=== PATIENT | male | born 1965 | race African-American/Black ===

== ENCOUNTER 2020-06-11 09:41 | Inpatient (IN) | payer SELFPAY ==
--- NOTE | 2020-06-11 10:34 | RAD ---
CHEST 1 VIEW: HISTORY: Dyspnea. COMPARISON: Radiograph 09/25/2016. FINDINGS: Abnormal perihilar and peripheral airspace opacities are somewhat faint. No pneumothorax. No effusi on. Heart size is normal. No acute osseous abnormality. IMPRESSION: Commonly reported imaging findings as COVID-19 pneumonia. POS: HOME
[2020-06-11] MEDS ORDERED: Dexamethasone 4 MG TAB ONE (10:54)
[2020-06-11] MEDS ORDERED: Albuterol 200 PUFF (6.7GM INHALER) ONE (11:06)
[2020-06-11 11:52] LABS: #Lymphocytes 1.3 thou/uL (1.20-3.40); #Monocytes 0.5 thou/uL (0.11-0.59); #Neutrophils 4.8 thou/uL (1.40-6.50); %Basophils 0.5 % (0.0-1.0); %Eosinophils 0.3 % (0.0-10.0); %Lymphocytes 19.4 % (21.0-51.0); %Neutrophils 72.9 % (42.0-75.0); Hemoglobin 15.1 g/dL (14.0-18.0); Mean Corpuscular HGB CONC 32.7 g/dL (32.0-36.0); Mean Corpuscular Hemoglobin 30.9 pg (27.0-31.0); Mean Corpuscular Volume 94.3 fL (78.0-98.0); Mean Platelet Volume 10.1 fL (7.4-10.4); Platelet Count 238 thou/uL (130-400); RBC Distribution Width 13.3 % (11.5-14.5); Red Blood Cell (RBC) Count 4.89 mill/uL (4.70-6.10); White Blood Cell (WBC) Count 6.5 thou/uL (4.8-10.8)
[2020-06-11 11:59] LABS: Base Excess-Venous -1.4 mmol/L (-2.0 to 3.0); Bicarbonate (HCO3v) 20.6 mmol/L (22.0-28.0); CO2 Tension (PvCO2) 28.1 mmHg (40.0-50.0); Calcium, Ionized 0.93 mmol/L (1.15-1.33); Chloride 105 mmol/L (98-107); Hemoglobin - Calc 16.9 g/dL (14.0-18.0); Potassium 5.6 mmol/L (3.5-5.1); Sodium 133 mmol/L (138-145); T. Carbon Dioxide 21.5 mmol/L (22.0-28.0)
[2020-06-11 12:19] LABS: ALT (SGPT) 39 U/L (8-55); AST (SGOT) 53 U/L (5-34); Albumin 3.8 g/dL (3.5-5.0); Alkaline Phosphatase 86 U/L (40-110); Anion Gap 17 mmol/L (10-20); BUN (Urea Nitrogen) 13 mg/dL (8.4-25.7); Bilirubin, Total 0.7 mg/dL (0.2-1.2); Calc. Creatinine Clearance 0 mL/min (70-130); Calcium 8.7 mg/dL (7.8-10.44); Carbon Dioxide 20 mmol/L (22-29); Chloride 103 mmol/L (98-107); Globulin 4.3 g/dL (2.4-3.5); Glucose 113 mg/dL (70-105); Potassium 4.6 mmol/L (3.5-5.1); Protein, Total 8.1 g/dL (6.0-8.3); Sodium 135 mmol/L (136-145)
[2020-06-11 12:22] LABS: SARS-CoV-2 NAA Rapid Test DETECTED (NotDetected)
[2020-06-11 12:37] LABS: CKMB 1.9 ng/mL (0-6.6)
[2020-06-11] MEDS ORDERED: Azithromycin 500 MG VIAL ONE (12:45)
[2020-06-11] MEDS ORDERED: Lisinopril 10 MG TAB ONE (12:45)
[2020-06-11] MEDS ORDERED: cefTRIAXone\\ROCEPHIN 1 GM VIAL ONE (12:45)
--- NOTE | 2020-06-11 13:06 | PDOC.FPRHP ---
- History of Present Illness Chief Complaint: SOB History of Present Illness: 55 yo M with HTN, DM2, HLD presents to ER for worsening dyspnea. Tested positive for COVID. He endorses daughter & raizae tested positive for COVID on 06/04. He started experiencing symptoms around 3-4 days ago. Has some loose stools, dec. appetite and coughing with walking. Has felt feverish with chills. Denies chest pain, sputum production, recent travel. He is currently not requiring any supplemental O2 and was going to be discharged from the ER but when walking to the bathroom desaturated to 85% warranting admission. - Allergies/Adverse Reactions Allergies Allergy/AdvReac Type Severity Reaction Status Date / Time No Known Allergies Allergy Verified 09/25/16 16:42 - Home Medications Medication Instructions Recorded Confirmed Type Lisinopril 10 mg PO DAILY #30 tablet 09/27/16 Rx Lovastatin 20 mg PO QPM-WM #30 tablet 09/27/16 Rx NPH, Human Insulin Isophane 20 unit SC HS #1 vial 09/27/16 Rx [HumuLIN N] NPH, Human Insulin Isophane 25 unit SC QAM #1 vial 09/27/16 Rx [HumuLIN N] Pantoprazole [Protonix] 40 mg PO DAILY #30 tab 09/27/16 Rx metFORMIN HCl 500 mg PO BID-WM #60 tab 09/27/16 Rx - History PMHx: HTN, DM2, HLD PSHx: Denies FHx: HTN Social: Former smoker roughly 5 pack year hx, quit 5 years ago - Review of Systems General: reports: fever/chills, weight/appetite/sleep changes. denies: other ENT: denies: nasal congestion, rhinorrhea Respiratory: reports: cough, congestion, shortness of breath, exercise intolerance Cardiovascular: denies: chest pain, palpitation Gastrointestinal: reports: diarrhea. denies: nausea, vomiting, constipation, abdominal pain, GI bleeding Skin: denies: rashes, lesions Musculoskeletal: denies: pain, tenderness, stiffness Neurological: reports: weakness Psychological: denies: anxiety, depression - Vital signs 188/106, MAP: 133, Pulse: 98, Resp: 22, Temp: 99.7 (Oral), Pain: 0, O2 sat: 93 on (2L Oxygen), Time: 06/11/2020 13:58. - Physical Exam Constitutional: NAD, awake, alert and oriented HEENT: normocephalic and atraumatic, PERRLA, EOMI Neck: supple, FROM, trachea midline Heart: RRR, normal S1/S2, no murmurs/rubs/gallops FMR H&P: Results - Labs Result Diagrams: 06/11/20 11:37 06/11/20 11:37 Lab results: WBC 6.5 thou/uL (4.8-10.8) 06/11/20 11:37 Hgb 15.1 g/dL (14.0-18.0) 06/11/20 11:37 Hct 46.1 % (42.0-52.0) 06/11/20 11:37 MCV 94.3 fL (78.0-98.0) 06/11/20 11:37 Plt Count 238 thou/uL (130-400) 06/11/20 11:37 Neutrophils % 72.9 % (42.0-75.0) 06/11/20 11:37 VBG pCO2 28.1 mmHg (40.0-50.0) L 06/11/20 11:51 VBG pO2 42.3 mmHg (35.0-45.0) 06/11/20 11:51 Sodium 135 mmol/L (136-145) L 06/11/20 11:37 Potassium 4.6 mmol/L (3.5-5.1) 06/11/20 11:37 Chloride 103 mmol/L (98-107) 06/11/20 11:37 Carbon Dioxide 20 mmol/L (22-29) L 06/11/20 11:37 BUN 13 mg/dL (8.4-25.7) 06/11/20 11:37 Creatinine 0.90 mg/dL (0.7-1.3) 06/11/20 11:37 Glucose 113 mg/dL (70-105) H 06/11/20 11:37 Calcium 8.7 mg/dL (7.8-10.44) 06/11/20 11:37 Total Bilirubin 0.7 mg/dL (0.2-1.2) 06/11/20 11:37 AST 53 U/L (5-34) H 06/11/20 11:37 ALT 39 U/L (8-55) 06/11/20 11:37 Alkaline Phosphatase 86 U/L (40-110) 06/11/20 11:37 CK-MB (CK-2) 1.9 ng/mL (0-6.6) 06/11/20 11:37 B-Natriuretic Peptide 21.7 pg/mL (0-100) 06/11/20 11:37 Serum Total Protein 8.1 g/dL (6.0-8.3) 06/11/20 11:37 Albumin 3.8 g/dL (3.5-5.0) 06/11/20 11:37 - Radiology Interpretation Chest x-ray Status: image reviewed by me, report reviewed by me Additional comment: Abnormal perihilar and peripheral airspace opacities are somewhat faint FMR H&P: A/P - Plan Disposition/LOS: 55 yo M with AHRF 2/ to COVID respiratory infection Acute hypoxic respiratory insufficiency 2/2 COVID respiratory infection, mild -Sxs 06/07/20, Dx 06/11/20 -Desaturation to mid 80s with walking -CXR: Perihilar and peripheral airspace opacities -Steroids, b/c not requiring O2 at rest, will hold off on convalescent plasma & remdeivir -CM to see if qualifies for home O2- walking test -Given rocephin & azithromycin in the ER, will obtain procal to determine continuation of abx Prediabetes -A1c 5.6, sliding scale -Lifestyle modification HLD -Check FLP, may need statin HTN -Elevated BPs in ER: 180s/100s -Hydralazine PRN -Initiate lisinopril dvt ppx: lovenox gi ppx: none code: full PCP: CC LOS: <[address] Sandhu FMR H&P: Upper Level - Plan Date/Time: 06/11/20 1306 I, [], have evaluated this patient and agree with findings/plan as outlined by international sales manager resident. Pertinent changes/additions are listed here. Addendum - Attending - Attending Attestation Date/Time: 06/11/20 9724 I personally evaluated the patient and discussed the management with Dr. Levine. I agree with the History, Examination, Assessment and Plan documented above with any addition or exceptions noted below.
[2020-06-11] MEDS ORDERED: Ondansetron PF 4 MG/2 ML Vial IVP PRN (13:07)
[2020-06-11] MEDS ORDERED: Acetaminophen 325 MG TAB PO PRN (13:07)
[2020-06-11] MEDS ORDERED: Dextrose 5% in Water 1,000 ML IV PRN (13:07)
[2020-06-11] MEDS ORDERED: Dextrose 50% Abboject 50 ML SYRINGE SLOW IVP PRN (13:07)
[2020-06-11] MEDS ORDERED: Ondansetron ODT 4 MG TAB PO PRN (13:07)
[2020-06-11] MEDS ORDERED: HumaLOG 300 UNITS/3 ML VIAL SC PRN (13:07)
[2020-06-11 14:09] LABS: Hemoglobin A1c 6.2 % (4.0-6.0)
[2020-06-11 16:26] VITALS: BMI 41.3
[2020-06-11] MEDS: hydrALAZINE 20 MG/ML VIAL SLOW IVP PRN (17:45)
[2020-06-11] MEDS: HumaLOG 300 UNITS/3 ML VIAL SC PRN (17:46)
[2020-06-11 18:16] LABS: CKMB 2.5 ng/mL (0-6.6)
[2020-06-11] MEDS ORDERED: FLU VACC QS2020-21(6MOS UP)/PF 60 MCG/0.5 ML SYRINGE IM ONE (21:00)
[2020-06-11] MEDS: Melatonin 3 MG TAB PO PRN (22:13)
[2020-06-12] MEDS: hydrALAZINE 20 MG/ML VIAL SLOW IVP PRN ×3 (00:58→18:05)
[2020-06-12 05:28] LABS: Band 3 % (5-11); Hemoglobin 14.5 g/dL (14.0-18.0); Lymphocytes 8 % (21-51); MDiff Complete? YES; Mean Corpuscular HGB CONC 32.8 g/dL (32.0-36.0); Mean Corpuscular Hemoglobin 30.4 pg (27.0-31.0); Mean Corpuscular Volume 92.5 fL (78.0-98.0); Monocytes 12 % (0-10); Neutrophil 77 % (42-75); Platelet Count 293 thou/uL (130-400); Platelet Morphology Comment Appears Adequate; RBC Distribution Width 12.9 % (11.5-14.5); RBC Morphology Normal; Red Blood Cell (RBC) Count 4.77 mill/uL (4.70-6.10); White Blood Cell (WBC) Count 12.1 thou/uL (4.8-10.8)
[2020-06-12 05:37] LABS: Anion Gap 16 mmol/L (10-20); BUN (Urea Nitrogen) 14 mg/dL (8.4-25.7); Calc. Creatinine Clearance 179 mL/min (70-130); Calcium 9.1 mg/dL (7.8-10.44); Carbon Dioxide 20 mmol/L (22-29); Cardiac Risk 3.1 (Less than 4.5); Chloride 103 mmol/L (98-107); Cholesterol 126 mg/dl (< 200 Desired); Glucose 149 mg/dL (70-105); HDL Cholesterol 41 mg/dL (>60 Neg Risk); LDL Cholesterol, Calculated 75 mg/dL; Potassium 4.1 mmol/L (3.5-5.1); Sodium 135 mmol/L (136-145); Triglycerides 50 mg/dL (Less than 150)
--- NOTE | 2020-06-12 06:01 | PDOC.FM ---
- Subjective Subjective: Reports productive cough and mild SOB with ambulation. Denies headache, vision changes, chest pain, SOB at rest and palpitations. - Objective MAR Reviewed: Yes Vital Signs & Weight: Vital Signs (12 hours) Temp Pulse Resp BP Pulse Ox 06/12/20 04:40 98.3 F 110 H 18 190/88 H 100 06/12/20 04:00 97.7 F 97 20 190/88 H 98 06/12/20 00:58 97 06/12/20 00:45 99 06/12/20 00:36 98.0 F 97 17 182/80 H 06/11/20 23:27 96 06/11/20 21:06 98.0 F 95 20 153/73 H 90 L 06/11/20 19:12 99 Weight Weight 112.854 kg I&O: 06/10/20 06/11/20 06/12/20 06:59 06:59 06:59 Intake Total 600 Balance 600 Result Diagrams: 06/12/20 04:53 06/12/20 04:53 Phys Exam - Physical Examination Constitutional: NAD HEENT: moist MMs, sclera anicteric Neck: full ROM Respiratory: clear to auscultation bilateral On 3L NC Cardiovascular: RRR, no significant murmur Gastrointestinal: soft, non-tender, positive bowel sounds Musculoskeletal: no edema Neurological: non-focal Psychiatric: normal affect, A&O x 3 Skin: no rash Dx/Plan - Plan Plan: 55 yo M with AHRF 2/2 to COVID respiratory infection Acute hypoxic respiratory insufficiency 2/2 COVID respiratory infection, mild Sxs 06/07/20, Dx 06/11/20. Desaturation to mid 80s with walking in ED. CXR: Perihilar and peripheral airspace opacities -Decadron (06/11) -Due to now requiring O2 at rest, will start remdesivir and convalescent plasma -Currently on 3L at rest. Wean as tolerated -CM for home o2 -Procal 0.33. Will continue rocephin (06/11) and azithromycin (06/11) Prediabetes -A1c 5.6, sliding scale -Lifestyle modification HLD -ASCVD risk 13.7%, therefore will start atorvastatin 40mg daily HTN -Elevated BPs in ER over 180s/90-100s and overnight requiring hydralazine 10mg x 2 -Hydralazine PRN -Initiate lisinopril 10mg daily dvt ppx: lovenox gi ppx: none code: full PCP: CC Dispo: Home pending further medical management and coordination of home O2 Addendum - Attending - Attending Attestation Date/Time: 06/12/20 1051 I personally evaluated the patient and discussed the management with Dr. Khanna. I agree with the History, Examination, Assessment and Plan documented above with any addition or exceptions noted below. Patient here with hypoxic resp failure 2/2 COVID. Continue O2 supplementation, steroids usual therapies. Wean O2 as tolerated. He also needs BP control and we will start him on meds for that and titrate accordingly.
[2020-06-12] MEDS: Dexamethasone 4 MG TAB PO SCH (08:47)
[2020-06-12] MEDS: Enoxaparin Sodium 40 MG/0.4 ML SYRINGE SC SCH (08:49)
[2020-06-12] MEDS ORDERED: Lisinopril 5 MG TAB PO SCH ×3 (09:00→20:45)
[2020-06-12] MEDS: guaiFENesin ER 600 MG TAB PO SCH ×2 (09:03→20:06)
[2020-06-12] MEDS: cefTRIAXone\\ROCEPHIN 1 GM in Sodium Chloride 0.9% 100 ML IVPB SCH (11:36)
[2020-06-12] MEDS ORDERED: REMDESIVIR (EUA) 200 MG in Sodium Chloride 0.9% 250 ML 210 ML IV SCH (13:15)
[2020-06-12] MEDS: HumaLOG 300 UNITS/3 ML VIAL SC PRN (13:24)
[2020-06-12] MEDS: Azithromycin 250 MG TAB PO SCH (13:24)
[2020-06-12] MEDS: Atorvastatin Calcium 40 MG TAB PO SCH (20:06)
[2020-06-12] MEDS: Famotidine 20 MG TAB PO SCH (20:06)
[2020-06-12] MEDS: Labetalol HCl 100 MG/20 ML VIAL SLOW IVP PRN (20:52)
[2020-06-13] MEDS: hydrALAZINE 20 MG/ML VIAL SLOW IVP PRN ×2 (01:11→10:04)
[2020-06-13] MEDS: Melatonin 3 MG TAB PO PRN ×2 (02:04→22:29)
[2020-06-13] MEDS ORDERED: Labetalol HCl 100 MG/20 ML VIAL SLOW IVP SCH (05:15)
[2020-06-13 06:08] LABS: Anion Gap 16 mmol/L (10-20); BUN (Urea Nitrogen) 17 mg/dL (8.4-25.7); Calc. Creatinine Clearance 177 mL/min (70-130); Carbon Dioxide 23 mmol/L (22-29); Chloride 103 mmol/L (98-107); Glucose 113 mg/dL (70-105); Potassium 3.9 mmol/L (3.5-5.1); Sodium 138 mmol/L (136-145)
[2020-06-13 06:09] LABS: Hemoglobin 13.9 g/dL (14.0-18.0); Mean Corpuscular HGB CONC 31.8 g/dL (32.0-36.0); Mean Corpuscular Hemoglobin 29.6 pg (27.0-31.0); Mean Corpuscular Volume 93.2 fL (78.0-98.0); Platelet Count 343 thou/uL (130-400); RBC Distribution Width 13.1 % (11.5-14.5); White Blood Cell (WBC) Count 13.6 thou/uL (4.8-10.8)
--- NOTE | 2020-06-13 06:16 | PDOC.FM ---
- Subjective Subjective: Reports improvement of SOB. Denies headache, vision changes, chest pain, and palpitations. Says his BP was elevated overnight due to frustration over lack of sleep and "getting worked up" over being here. - Objective MAR Reviewed: Yes Vital Signs & Weight: Vital Signs (12 hours) Temp Pulse Resp BP Pulse Ox 06/13/20 04:05 97.2 F L 98 16 190/94 H 98 06/13/20 01:11 95 06/13/20 00:37 98.5 F 95 16 175/80 H 92 L 06/12/20 20:52 104 H 06/12/20 20:28 98.4 F 104 H 20 189/87 H 98 Weight Weight 112.854 kg I&O: 06/11/20 06/12/20 06/13/20 06:59 06:59 06:59 Intake Total 600 2120 Output Total 1140 Balance 600 980 Result Diagrams: 06/13/20 05:29 06/13/20 05:29 Phys Exam - Physical Examination Constitutional: NAD HEENT: moist MMs, sclera anicteric Neck: full ROM Respiratory: clear to auscultation bilateral On 3L Cardiovascular: RRR, no significant murmur Gastrointestinal: soft, non-tender, positive bowel sounds Musculoskeletal: no edema Neurological: moves all 4 limbs Psychiatric: normal affect, A&O x 3 Skin: no rash Dx/Plan - Plan Plan: 55 yo M with AHRF 2/2 to COVID respiratory infection Acute hypoxic respiratory insufficiency 2/2 COVID respiratory infection, mild Sxs 06/07/20, Dx 06/11/20. Desaturation to mid 80s with walking in ED. CXR: Perihilar and peripheral airspace opacities -Decadron (06/11), remdesivir (06/12), convalescent plasma (06/12) -Currently on 3L at rest. Wean as tolerated -CM for home o2 -Procal 0.33. Continue rocephin (06/11) and azithromycin (06/11) from ED Prediabetes -A1c 5.6, sliding scale -Lifestyle modification HLD -ASCVD risk 13.7%, therefore started atorvastatin 40mg daily HTN -Elevated BPs 170-190s systolic overnight requiring lisinopril 10, labetalol 5mg and 10mg -Hydralazine PRN, labetalol PRN -Increase lisinopril 10mg to 20mg daily dvt ppx: lovenox gi ppx: none code: full PCP: CC Dispo: Home pending further medical management and coordination of home O2 Addendum - Attending - Attending Attestation Date/Time: 06/13/20 3879 I personally evaluated the patient and discussed the management with Dr. Clemente arias. I agree with the History, Examination, Assessment and Plan documented above with any addition or exceptions noted below.
[2020-06-13 06:37] LABS: #Lymphocytes 1.3 thou/uL (1.20-3.40); #Neutrophils 11.3 thou/uL (1.40-6.50); %Basophils 0.1 % (0.0-1.0); %Eosinophils 0.1 % (0.0-10.0); %Lymphocytes 9.2 % (21.0-51.0); %Monocytes 7.5 % (0.0-10.0); %Neutrophils 83.1 % (42.0-75.0); Band 1 % (5-11); Hypochromia SLIGHT = 6-15 cells (100X) (0-5/hpf); Lymphocytes 18 % (21-51); MDiff Complete? YES; Neutrophil 80 % (42-75); Platelet Morphology Comment Appears Adequate; Reactive Lymphocytes 1 % (0-10)
[2020-06-13] MEDS ORDERED: Lisinopril 10 MG TAB PO SCH (09:00)
[2020-06-13] MEDS: Famotidine 20 MG TAB PO SCH ×2 (09:33→20:01)
[2020-06-13] MEDS: guaiFENesin ER 600 MG TAB PO SCH ×2 (09:33→20:06)
[2020-06-13] MEDS: Dexamethasone 4 MG TAB PO SCH (09:33)
[2020-06-13] MEDS: Enoxaparin Sodium 40 MG/0.4 ML SYRINGE SC SCH (09:33)
[2020-06-13] MEDS: Lisinopril 20 MG TAB PO SCH (09:34)
[2020-06-13] MEDS: cefTRIAXone\\ROCEPHIN 1 GM in Sodium Chloride 0.9% 100 ML IVPB SCH (12:01)
[2020-06-13] MEDS: Labetalol HCl 100 MG/20 ML VIAL SLOW IVP PRN ×3 (12:25→22:30)
[2020-06-13] MEDS ORDERED: Amlodipine 10 MG TAB PO SCH (12:25)
[2020-06-13] MEDS: REMDESIVIR (EUA) 100 MG in Sodium Chloride 0.9% 250 ML 230 ML IV SCH (13:16)
[2020-06-13] MEDS: Azithromycin 250 MG TAB PO SCH (13:17)
[2020-06-13] MEDS: HumaLOG 300 UNITS/3 ML VIAL SC PRN (17:18)
[2020-06-13] MEDS: Atorvastatin Calcium 40 MG TAB PO SCH (20:02)
[2020-06-14] MEDS: Labetalol HCl 100 MG/20 ML VIAL SLOW IVP PRN ×2 (04:27→08:10)
[2020-06-14 05:53] LABS: #Lymphocytes 1.4 thou/uL (1.20-3.40); #Monocytes 1.3 thou/uL (0.11-0.59); #Neutrophils 8.6 thou/uL (1.40-6.50); %Eosinophils 0.1 % (0.0-10.0); %Lymphocytes 12.1 % (21.0-51.0); %Monocytes 11.1 % (0.0-10.0); %Neutrophils 76.6 % (42.0-75.0); Hemoglobin 14.8 g/dL (14.0-18.0); Mean Corpuscular HGB CONC 32.2 g/dL (32.0-36.0); Mean Corpuscular Hemoglobin 30.6 pg (27.0-31.0); Mean Corpuscular Volume 95.1 fL (78.0-98.0); Mean Platelet Volume 10.3 fL (7.4-10.4); Platelet Count 374 thou/uL (130-400); RBC Distribution Width 13.2 % (11.5-14.5); Red Blood Cell (RBC) Count 4.83 mill/uL (4.70-6.10); White Blood Cell (WBC) Count 11.2 thou/uL (4.8-10.8)
--- NOTE | 2020-06-14 06:09 | PDOC.FM ---
- Subjective Subjective: 4 seconds of vtach overnight, asymptomatic. Denies headache, vision changes, chest pain, and palpitations. Reports mild SOB when walking but says he is overall "great." States he becomes stressed out when people come into the room and check his BP. Also reports stress today due to family member's that he is missing. - Objective MAR Reviewed: Yes Vital Signs & Weight: Vital Signs (12 hours) Temp Pulse Resp BP BP Pulse Ox 06/14/20 04:27 89 186/88 H 06/14/20 03:51 98.6 F 89 18 186/88 H 96 06/13/20 23:50 171/85 H 06/13/20 23:00 92 22 H 145/109 H 97 06/13/20 22:30 92 181/101 H 06/13/20 20:00 97.1 F L 94 21 H 183/85 H 99 Weight Weight 112.854 kg I&O: 06/12/20 06/13/20 06/14/20 06:59 06:59 06:59 Intake Total 600 2120 1684 Output Total 1140 2875 Balance 600 980 -1191 Result Diagrams: 06/14/20 05:20 06/14/20 05:20 Phys Exam - Physical Examination Constitutional: NAD HEENT: moist MMs, sclera anicteric Neck: full ROM Respiratory: clear to auscultation bilateral Sat'ing 90 on 3L NC Cardiovascular: RRR, no significant murmur Gastrointestinal: soft, non-tender, positive bowel sounds Musculoskeletal: no edema Neurological: moves all 4 limbs Psychiatric: normal affect, A&O x 3 Skin: no rash Dx/Plan - Plan Plan: 55 yo M with AHRF 2/2 to COVID respiratory infection Acute hypoxic respiratory insufficiency 2/2 COVID respiratory infection, mild Sxs 06/07/20, Dx 06/11/20. Desaturation to mid 80s with walking in ED. CXR: Perihilar and peripheral airspace opacities -Decadron (06/11), remdesivir (06/12), s/p convalescent plasma (06/12) -Currently on 3L NC at rest. Wean as tolerated -CM for home o2 -Procal 0.33 > 0.27 > 0.15. Continue rocephin (06/11) and azithromycin (06/11) Prediabetes -A1c 5.6, mild SSI -Lifestyle modification HLD -ASCVD risk 13.7%, therefore started atorvastatin 40mg daily HTN -Elevated BPs 170-180s systolic overnight requiring labetalol 10mg x 2 -BP 220/110 during rounds, instructed nursing staff to give hydralazine 10mg now in addition to am BP meds -Hydralazine PRN, labetalol PRN -Continue lisinopril 20mg daily -Continue amlodipine 10mg daily -Add chlorthalidone 12.5mg daily dvt ppx: lovenox gi ppx: none code: full PCP: CC Dispo: Home pending further medical management. Has been approved for home O2 Addendum - Attending - Attending Attestation Date/Time: 06/14/20 0543 I personally evaluated the patient and discussed the management with Dr. Khanna. I agree with the History, Examination, Assessment and Plan documented above with any addition or exceptions noted below.
[2020-06-14 06:18] LABS: Anion Gap 16 mmol/L (10-20); BUN (Urea Nitrogen) 18 mg/dL (8.4-25.7); Calc. Creatinine Clearance 148 mL/min (70-130); Calcium 9.2 mg/dL (7.8-10.44); Carbon Dioxide 24 mmol/L (22-29); Chloride 104 mmol/L (98-107); Glucose 117 mg/dL (70-105); Potassium 4.4 mmol/L (3.5-5.1); Sodium 140 mmol/L (136-145)
[2020-06-14] MEDS: Amlodipine 10 MG TAB PO SCH (08:09)
[2020-06-14] MEDS: Enoxaparin Sodium 40 MG/0.4 ML SYRINGE SC SCH (08:09)
[2020-06-14] MEDS: Dexamethasone 4 MG TAB PO SCH (08:09)
[2020-06-14] MEDS: guaiFENesin ER 600 MG TAB PO SCH ×2 (08:10→20:56)
[2020-06-14] MEDS: Famotidine 20 MG TAB PO SCH ×2 (08:10→20:56)
[2020-06-14] MEDS: Lisinopril 20 MG TAB PO SCH (08:10)
[2020-06-14] MEDS ORDERED: Amlodipine 5 MG TAB PO SCH (09:00)
[2020-06-14] MEDS: HumaLOG 300 UNITS/3 ML VIAL SC PRN ×2 (11:12→17:50)
[2020-06-14] MEDS: hydrALAZINE 20 MG/ML VIAL SLOW IVP PRN (12:43)
[2020-06-14] MEDS: REMDESIVIR (EUA) 100 MG in Sodium Chloride 0.9% 250 ML 230 ML IV SCH (13:12)
[2020-06-14] MEDS: hydrOXYzine 25 MG TAB PO PRN ×2 (14:15→20:57)
[2020-06-14] MEDS: Carvedilol 6.25 MG TAB PO SCH (16:57)
[2020-06-14] MEDS: Atorvastatin Calcium 40 MG TAB PO SCH (20:55)
[2020-06-14] MEDS: Melatonin 3 MG TAB PO PRN (20:56)
[2020-06-15] MEDS: hydrALAZINE 20 MG/ML VIAL SLOW IVP PRN ×2 (04:26→22:22)
[2020-06-15 05:34] LABS: Anion Gap 18 mmol/L (10-20); BUN (Urea Nitrogen) 19 mg/dL (8.4-25.7); Calc. Creatinine Clearance 165 mL/min (70-130); Calcium 9.1 mg/dL (7.8-10.44); Carbon Dioxide 19 mmol/L (22-29); Chloride 104 mmol/L (98-107); Glucose 112 mg/dL (70-105); Potassium 3.9 mmol/L (3.5-5.1); Sodium 137 mmol/L (136-145)
[2020-06-15 05:37] LABS: ALT (SGPT) 39 U/L (8-55); AST (SGOT) 24 U/L (5-34); Albumin 3.7 g/dL (3.5-5.0); Alkaline Phosphatase 86 U/L (40-110); Bilirubin, Direct 0.3 mg/dL (0.1-0.3); Bilirubin, Total 0.6 mg/dL (0.2-1.2); Protein, Total 7.5 g/dL (6.0-8.3)
--- NOTE | 2020-06-15 06:11 | PDOC.FM ---
- Subjective Subjective: Was weaned to 2L overnight, sat's dropped to 86% with ambulation and was titrated up to 5L O2. Says he feels well now on 3L with mild SOB. Denies headache, vision changes, chest pain, and palpitations. Reports hydroxyzine is greatly helpful with feelings of anxiety overnight - Objective MAR Reviewed: Yes Vital Signs & Weight: Vital Signs (12 hours) Temp Pulse Resp BP Pulse Ox 06/15/20 04:26 89 06/15/20 03:53 98.2 F 89 21 H 192/88 H 99 06/15/20 00:00 62 20 06/14/20 20:00 96.9 F L 82 20 145/90 H 100 Weight Weight 111.72 kg I&O: 06/13/20 06/14/20 06/15/20 06:59 06:59 06:59 Intake Total 2120 1684 1080 Output Total 1140 2875 1025 Balance 980 -1191 55 Result Diagrams: 06/14/20 05:20 06/15/20 04:45 Phys Exam - Physical Examination Constitutional: NAD HEENT: moist MMs, sclera anicteric Neck: full ROM Respiratory: no wheezing, clear to auscultation bilateral On 3L Cardiovascular: RRR, no significant murmur Gastrointestinal: soft, non-tender, positive bowel sounds Musculoskeletal: no edema Neurological: moves all 4 limbs Psychiatric: normal affect, A&O x 3 Skin: no rash Dx/Plan - Plan Plan: 55 yo M with AHRF 2/2 to COVID respiratory infection Acute hypoxic respiratory insufficiency 2/2 COVID respiratory infection, mild Sxs 06/07/20, Dx 06/11/20. Desaturation to mid 80s with walking in ED. CXR: Perihilar and peripheral airspace opacities -Decadron (06/11), remdesivir (06/12), s/p convalescent plasma (06/12) -Currently on 3L NC at rest. Wean as tolerated -CM for home o2 - approved -Procal 0.33 > 0.27 > 0.15. Discontinued rocephin (06/11-) and azithromycin (06/11-) Prediabetes -A1c 5.6, mild SSI -Lifestyle modification HLD -ASCVD risk 13.7%, therefore started atorvastatin 40mg daily HTN -Elevated BPs overnight requiring hydralazine 10mg x 1 -Hydralazine PRN, labetalol PRN -Continue lisinopril 20mg daily -Continue amlodipine 10mg daily -Continue chlorthalidone 12.5mg daily Anxiety -Hydroxyzine 50mg Q6H PRN dvt ppx: lovenox gi ppx: none code: full PCP: CC Dispo: Home pending adequate BP control. Has been approved for home O2 Addendum - Attending - Attending Attestation Date/Time: 06/15/20 4785 I personally evaluated the patient and discussed the management with Dr. Khanna. I agree with the History, Examination, Assessment and Plan documented above with any addition or exceptions noted below. Patient overall stable. Continue to wean O2 as tolerated. Continue treatment for COVID. Escalate BP control. Home O2 set up for whenever he is ready for dc.
[2020-06-15] MEDS ORDERED: Chlorthalidone 25 MG TAB PO SCH (09:00)
[2020-06-15] MEDS: guaiFENesin ER 600 MG TAB PO SCH ×2 (09:53→21:49)
[2020-06-15] MEDS: Carvedilol 6.25 MG TAB PO SCH ×2 (09:53→16:36)
[2020-06-15] MEDS: Enoxaparin Sodium 40 MG/0.4 ML SYRINGE SC SCH (09:53)
[2020-06-15] MEDS: Lisinopril 20 MG TAB PO SCH (09:53)
[2020-06-15] MEDS: Amlodipine 10 MG TAB PO SCH (09:53)
[2020-06-15] MEDS: Famotidine 20 MG TAB PO SCH ×2 (09:53→21:49)
[2020-06-15] MEDS: Dexamethasone 4 MG TAB PO SCH (09:55)
[2020-06-15] MEDS: REMDESIVIR (EUA) 100 MG in Sodium Chloride 0.9% 250 ML 230 ML IV SCH (16:37)
[2020-06-15] MEDS: HumaLOG 300 UNITS/3 ML VIAL SC PRN (16:40)
[2020-06-15] MEDS: Atorvastatin Calcium 40 MG TAB PO SCH (21:49)
[2020-06-15] MEDS: Melatonin 3 MG TAB PO PRN (21:49)
[2020-06-16] MEDS: hydrOXYzine 25 MG TAB PO PRN (01:37)
[2020-06-16] MEDS: Labetalol HCl 100 MG/20 ML VIAL SLOW IVP PRN (01:38)
--- NOTE | 2020-06-16 05:40 | PDOC.FM ---
- Subjective Subjective: Overnight received hydralazine PRN for elevated BP. Remains asymptomatic - no chest pain, no headache. Comfortable on 2.5L NC, weaned from 3L NC overnight. Feels ready to go home. Home O2 has already been delivered to his house. - Objective Vital Signs & Weight: Vital Signs (12 hours) Temp Pulse Resp BP BP Pulse Ox 06/16/20 01:38 87 205/100 H 06/15/20 22:22 76 183/90 H 06/15/20 20:20 98.5 F 76 20 183/90 H 100 06/15/20 20:15 100 Weight Weight 111.72 kg I&O: 06/14/20 06/15/20 06/16/20 06:59 06:59 06:59 Intake Total 1684 1080 978 Output Total 1535 1025 950 Balance -1191 55 28 Result Diagrams: 06/14/20 05:20 06/16/20 05:31 Phys Exam - Physical Examination Constitutional: NAD HEENT: moist MMs Neck: supple Respiratory: no wheezing, no rales decreased breath sounds bilaterally, resting comfortably on 2.5L NC Cardiovascular: RRR, no significant murmur Gastrointestinal: soft, non-tender Musculoskeletal: pulses present Neurological: non-focal, moves all 4 limbs Psychiatric: normal affect, A&O x 3 Skin: normal turgor, cap refill <2 seconds Dx/Plan - Plan Plan: 55 yo M with AHRF 2/2 to COVID respiratory infection Acute hypoxic respiratory insufficiency 2/2 COVID respiratory infection, mild Sxs 06/07/20, Dx 06/11/20. Desaturation to mid 80s with walking in ED. CXR: Perihilar and peripheral airspace opacities -Decadron (06/11), remdesivir (06/12), s/p convalescent plasma (06/12) -Currently on 2.5L NC at rest. Wean as tolerated -CM for home o2 - approved and has been delivered -Procal 0.33 > 0.27 > 0.15. Discontinued rocephin (06/11-) and azithromycin () Prediabetes -A1c 5.6, mild SSI -Lifestyle modification - f/u outpatient HLD -ASCVD risk 13.7%, therefore started atorvastatin 40mg daily HTN Elevated overnight, some pressures have been checked using manual cuff which only has regular size available at this time. Some artificial elevations as he requires a large cuff, although he remains above goal regardless. - will increase lisinopril to 40 mg daily - continue amlodpine 10 mg, coreg 6.25 mg BID - Hydralazine PRN, labetalol PRN - if BP remains stable throughout the day without use of PRNs, may possibly DC to home tonight Anxiety -Hydroxyzine 50mg Q6H PRN dvt ppx: lovenox gi ppx: none code: full PCP: CC Dispo: Home pending adequate BP control. Has been approved for home O2 Addendum - Attending - Attending Attestation Date/Time: 06/16/20 8731 I personally evaluated the patient and discussed the management with Dr. Weems. I agree with the History, Examination, Assessment and Plan documented above with any addition or exceptions noted below. The patient was sitting up in bed and breathing comfortably. He is ready to d/c home.
[2020-06-16 06:11] LABS: ALT (SGPT) 34 U/L (8-55); AST (SGOT) 22 U/L (5-34); Albumin 3.6 g/dL (3.5-5.0); Alkaline Phosphatase 81 U/L (40-110); Anion Gap 16 mmol/L (10-20); BUN (Urea Nitrogen) 20 mg/dL (8.4-25.7); Bilirubin, Direct 0.3 mg/dL (0.1-0.3); Bilirubin, Total 0.6 mg/dL (0.2-1.2); Calc. Creatinine Clearance 178 mL/min (70-130); Carbon Dioxide 19 mmol/L (22-29); Chloride 105 mmol/L (98-107); Glucose 101 mg/dL (70-105); Protein, Total 7.3 g/dL (6.0-8.3); Sodium 136 mmol/L (136-145)
[2020-06-16] MEDS: Enoxaparin Sodium 40 MG/0.4 ML SYRINGE SC SCH (08:01)
[2020-06-16] MEDS: Dexamethasone 4 MG TAB PO SCH (08:01)
[2020-06-16] MEDS: Famotidine 20 MG TAB PO SCH (08:02)
[2020-06-16] MEDS: Amlodipine 10 MG TAB PO SCH (08:03)
[2020-06-16] MEDS: Lisinopril 20 MG TAB PO SCH (08:03)
[2020-06-16] MEDS: guaiFENesin ER 600 MG TAB PO SCH (08:03)
[2020-06-16] MEDS: Carvedilol 6.25 MG TAB PO SCH ×2 (08:03→16:28)
[2020-06-16] MEDS ORDERED: Lisinopril 20 MG TAB PO SCH ×2 (09:00)
[2020-06-16] MEDS: HumaLOG 300 UNITS/3 ML VIAL SC PRN (12:36)
--- NOTE | 2020-06-16 13:38 | EKG ---
Test Reason : Blood Pressure : / mmHG Vent. Rate : 098 BPM Atrial Rate : 098 BPM P-R Int : 130 ms QRS Dur : 096 ms QT Int : 398 ms P-R-T Axes : 070 -27 050 degrees QTc Int : 508 ms Normal sinus rhythm Possible Left atrial enlargement Incomplete right bundle branch block Left ventricular hypertrophy Cannot rule out Septal infarct , age undetermined T wave abnormality, consider lateral ischemia Prolonged QT Abnormal ECG Confirmed by YAIR PAUL, MARTITA ([id number]), primer expeditor and drier GINNA STREETER ([id number]) on 06/16/2020 1:37:23 PM Referred By: Confirmed By:MARTITA MAZARIEGOS MD
[2020-06-16] MEDS: REMDESIVIR (EUA) 100 MG in Sodium Chloride 0.9% 250 ML 230 ML IV SCH (15:05)
[2020-06-16 16:22] VITALS: TEMP 98.9
[2020-06-16 17:45] VITALS: BP 158/79
--- NOTE | 2020-06-19 01:13 | PQF ---
Dear : Janny Sky Date 06/19/2020 Please exercise your independent, professional judgment in responding to the clarification form. Clinical indicators are provided on the bottom of this form for your review Can you please further clarify the diagnosis of the patient? Please check appropriate box(es): [ x ] Acute Respiratory Failure with Hypoxia [ ] Acute On Chronic Respiratory Failure with Hypoxia [ x] Acute Respiratory Failure due to: COVID Pneumonia [ ] Respiratory Insufficiency [ ] Other diagnosis please specify [ ] Unable to determine Physician Signature: Date/Time: For continuity of documentation, please document condition throughout progress notes and discharge summary. Thank You. To be completed by CDI/Coding staff for physician review: Present Clinical Indicators - Signs / Symptoms / Labs Results and Location in Medical Record [ x ] SOB H and P pg.1 [ x ] Tested positive for COVID H and P pg.1 [ x ] Desaturated to 85% H and P pg.1 [ x ] Acute hypoxic respiratory insufficiency 2/2 COVID infection H and P pg.3 [ x ] Patient here with hypoxic resp failure 2/2 COVID Family PN 06/12 pg.3 [ x ] PCO2 28.1L Blood gas 06/11 [ x ] POC VBG pH 7.473H Blood gas 06/11 [ x ] POC Bicarbonate calc 20.6L Blood gas 06/11 Present Risk Factors Results and Location in Medical Record [ x ] Former smoker H and P pg.1 [ x ] COVID Pneumonia ED Provider pg.3 Present Treatments Results and Location in Medical Record [ x ] Oxygen supplementation Family PN pg.1 [ x ] Dexamethasone 4mg IV MAR [ x ] Azithromycin 500mg IV MAR [ x ] Rocephin 1gm IV MAR [ x ] Remdesivir 200mg IV MAR [facility] Signature: Bennyjazmin Michaelnena Parada Phone #: ext [phone] Date 06/19/2020 Acute Respiratory Failure: ABG pH < 7.35 or > 7.45; Decreased oxygen saturation (<90% room air or < 95% on oxygen); PCO2 > 50 mm Hg; PO2 < 60 mm Hg; Labored or rapid respirations ARDS: Dx Criteria [[place] ARDS]: Respiratory symptoms within one week of a known clinical insult (e.g. shock, infection, surgery, trauma) Bilateral opacities in CXR/Chest CT not due to CHF or fluid This is a permanent part of the Medical Record MTDD
--- NOTE | 2020-06-22 04:12 | DIS ---
DATE OF ADMISSION: 06/12/2020 DATE OF DISCHARGE: 06/16/2020 RESIDENT: Liat Khanna MD ADMITTING ATTENDING: Aries Sandhu MD. DISCHARGE ATTENDING: Everett Arango MD. CONSULTS: None. PROCEDURES: None. PRIMARY DIAGNOSIS: Acute hypoxic respiratory insufficiency secondary to COVID pneumonia SECONDARY DIAGNOSES: 1. Prediabetes. 2. Hyperlipidemia. 3. Hypertension. 4. Anxiety. DISCHARGE MEDICATIONS: 1. Mucinex 600 mg p.o. b.i.d. 2. Atarax 50 mg p.o. q.6 hours p.r.n. 3. Coreg 6.25 mg p.o. b.i.d. 4. Decadron 6mg PO daily to complete 10 day course 5. Lipitor 40 mg p.o. at bedtime. 6. Metformin 500 mg p.o. b.i.d. 7. Amlodipine 10 p.o. daily. 8. Omeprazole 20 mg p.o. daily. 9. Lisinopril 40 mg p.o. daily. DISCONTINUED MEDICATIONS: None. HISTORY OF PRESENT ILLNESS: The patient is a 55-year-old male with a history of hypertension, hyperlipidemia, who presented to the ED on 06/11/2020, for worsening dyspnea with a known COVID exposure. The patient tested positive for COVID in the ED. Symptom onset was 06/07/20, diagnosed 06/11/20. The patient desaturated to the mid 80s with ambulation in the ED and was placed on oxygen with improvement of O2 saturation. Chest x-ray was consistent with COVID pneumonia. The patient was started on Decadron, remdesivir and convalescent plasma, completed the 5 day course of remdesivir prior to discharge. The patient was placed on Rocephin and azithromycin from 06/11 to 06/14 and was discontinued after procal continued to downtrend. During hospitalization, his blood pressure was noted to be consistently above goal. He was started on lisinopril, amlodipine, and Coreg, which were titrated as indicated. A1c was checked and was 5.6, consistent with prediabetes. The patient was counseled on lifestyle modification and daily exercise. He was instructed to establish with the PCP upon discharge for further evaluation. He was also started on atorvastatin 40 mg daily due to an ASCVD risk of 13.7%. He was deemed stable for discharge home on 3L O2 on 06/16/2020. DISPOSITION: Stable. DISCHARGE INSTRUCTIONS: 1. Location: Home. 2. Diet: Heart healthy. 3. Activity: As tolerated. 4. Instructed to establish with PCP and follow up within 1 week. Job ID: [id number] MTDD
== END 2020-06-16 17:23 | disposition home or self-care (01) | DRG 177 ==
LOC: ERS 09:41 → 2SE 12:47 → OBSVTOIN 06-12 13:39
PROVIDERS: ADMIT Family Medicine; ATTEND Family Medicine
PROC: 8E0ZXY6 Isolation (ICD-10-PCS; principal; 2020-06-12)
PROC: XW033E5 Introduction of Remdesivir Anti-infective into Peripheral Vein, Percutaneous Approach, New Technology Group 5 (ICD-10-PCS; 2020-06-12)
PROC: XW13325 Transfusion of Convalescent Plasma (Nonautologous) into Peripheral Vein, Percutaneous Approach, New Technology Group 5 (ICD-10-PCS; 2020-06-12)
DX: U07.1 COVID-19 (principal); J96.01 Acute respiratory failure with hypoxia; J12.82 Pneumonia due to coronavirus disease 2019; I47.2 Ventricular tachycardia; I10 Essential (primary) hypertension; E11.9 Type 2 diabetes mellitus without complications; E78.5 Hyperlipidemia, unspecified; E78.00 Pure hypercholesterolemia, unspecified; F41.9 Anxiety disorder, unspecified; Z87.891 Personal history of nicotine dependence; Z79.4 Long term (current) use of insulin; Z79.899 Other long term (current) drug therapy
CPT/HCPCS: 0240U; 36415; 36416; 36430; 71045; 80048; 80053; 80061; 80076; 82330; 82553; 82728; 82803; 83036; 83615; 83735; 83880; 84145; 84484; 85025; 85379; 85652; 86140; 86850; 86900; 86901; 90471; 90662; 90732; 93005; 94664; 96365; 96366; 96367; 96372; G0008; G0009; G0378; J0360; J0456; J0696; J1650; J3490; J7050; J8540; P9017

== ENCOUNTER 2023-01-10 18:11 | Emergency (ER) | payer SELFPAY ==
[~2023-01-10 18:11] MED LIST: Iopamidol-370 76% 500 ML MDV (1 ML CHARGE) ONE
[2023-01-10] MEDS ORDERED: Dexamethasone 10 MG/ML VIAL ONE ×2 (18:34→18:45)
[2023-01-10] MEDS ORDERED: Magnesium 2 GM/50 ML BAG (IN WATER) ONE ×2 (18:35→18:45)
[2023-01-10] MEDS ORDERED: Cefepime 2 GM VIAL ONE (18:35)
[2023-01-10] MEDS ORDERED: Ipratropium/Albuterol 3 ML NEB ONE ×2 (18:41→20:13)
[2023-01-10] MEDS ORDERED: Cefepime 1 GM VIAL ONE (18:45)
[2023-01-10 18:56] LABS: #Monocytes 0.3 thou/uL (0.11-0.59); #Neutrophils 8.5 thou/uL (1.40-6.50); %Basophils 0.3 % (0.0-1.0); %Eosinophils 0.4 % (0.0-10.0); %Lymphocytes 7.7 % (21.0-51.0); %Monocytes 2.7 % (0.0-10.0); %Neutrophils 88.6 % (42.0-75.0); Hematocrit 45.9 % (42.0-52.0); Hemoglobin 15.6 g/dL (14.0-18.0); Mean Corpuscular Hemoglobin 30.9 pg (27.0-31.0); Mean Corpuscular Volume 90.9 fl (78.0-98.0); Mean Platelet Volume 12.1 fL (7.4-10.4); Platelet Count 263 10x3/uL (130-400); RBC Distribution Width 13.5 % (11.5-14.5); Red Blood Cell (RBC) Count 5.05 mill/uL (4.70-6.10); White Blood Cell (WBC) Count 9.6 10x3/uL (4.8-10.8)
[2023-01-10] MEDS ORDERED: Vancomycin 1.5 GRAM/300 ML BAG 1.5 GM in Premix Bag 1 BAG IVPB SCH (19:00)
[2023-01-10 19:13] LABS: ALT (SGPT) 20 U/L (8-55); AST (SGOT) 25 U/L (5-34); Albumin 4.8 g/dL (3.5-5.0); Alkaline Phosphatase 98 U/L (40-110); Anion Gap 20 mmol/L (10-20); BUN (Urea Nitrogen) 16 mg/dL (8.4-25.7); Bilirubin, Total 0.5 mg/dL (0.2-1.2); Calc. Creatinine Clearance 0 mL/min (70-130); Calcium 9.4 mg/dL (7.8-10.44); Carbon Dioxide 19 mmol/L (22-29); Chloride 102 mmol/L (98-107); Estimated GFR 100; Globulin 3.2 g/dL (2.4-3.5); Glucose 164 mg/dL (70-105); Potassium 3.8 mmol/L (3.5-5.1); Sodium 137 mmol/L (136-145)
[2023-01-10 19:17] LABS: Troponin I Less than 0.010 ng/mL (< 0.028)
[2023-01-10 20:52] LABS: Bacteria/HPF None Seen HPF (None Seen); Bilirubin Negative (Negative); Blood, Urine Negative (Negative); CAUTI Indications for Culture Fever or rigors; Clarity Clear (Clear); Glucose, Urine (Dipstick) Normal (Negative); Ketone, Urine Trace mg/dL (Negative); Leukocyte Negative Leu/uL (Negative); Nitrite Negative (Negative); Protein, Urine (Dipstick) 20 mg/dL (Neg-Trace); RBC/HPF 0-3 HPF (0-3); Specific Gravity, Urine 1.018 (1.002-1.036); Squamous Epithelial None Seen HPF (0-3); Urobilinogen Normal mg/dL (Less than 2); WBC/HPF 0-3 HPF (0-3)
[2023-01-10 20:55] LABS: Urine Culture Reflex No No
[2023-01-10 21:11] LABS: SARS-CoV-2 NAA Rapid Test Not Detected (NotDetected)
== END 2023-01-10 23:15 | disposition home or self-care (01) ==
LOC: ERS 18:11
DX: J22 Unspecified acute lower respiratory infection (principal); F17.210 Nicotine dependence, cigarettes, uncomplicated; I10 Essential (primary) hypertension; E11.9 Type 2 diabetes mellitus without complications; Z79.84 Long term (current) use of oral hypoglycemic drugs; Z20.822 Contact with and (suspected) exposure to COVID-19
CPT/HCPCS: 36415; 71045; 71275; 80053; 81001; 83605; 83880; 84484; 85025; 87040; 93005; 94640; 94760; 96365; 96366; 96368; 96375; J0692; J1100; J3370; J3475; J7611; J7620; Q9967

== ENCOUNTER 2024-06-16 09:10 | Emergency (ER) | payer SELFPAY ==
[2024-06-16] MEDS ORDERED: Magnesium 2 GM/50 ML BAG (IN WATER) ONE (09:38)
[2024-06-16] MEDS ORDERED: Albuterol 2.5 MG (0.5 mL) NEB ONE ×2 (09:38→10:42)
[2024-06-16] MEDS ORDERED: Ipratropium Bromide 2.5 ml Neb ONE ×2 (09:38→10:42)
[2024-06-16] MEDS ORDERED: methylPREDNISolone Sod Succ/PF 125 MG/2 ML VIAL ONE (09:38)
[2024-06-16 09:57] LABS: #Basophils 0.06 10x3/uL (0.0-0.2); %Basophils 0.8 % (0.0-1.0); %Eosinophils 3.4 % (0.0-10.0); %Lymphocytes 25.1 % (21.0-51.0); %Monocytes 9.5 % (0.0-10.0); %Neutrophils 61.1 % (42.0-75.0); Hematocrit 47.3 % (42.0-52.0); Hemoglobin 15.6 g/dL (14.0-18.0); Mean Corpuscular Hemoglobin 29.7 pg (27.0-31.0); Mean Corpuscular Volume 89.9 fL (78.0-98.0); Mean Platelet Volume 11.9 fL (7.4-10.4); Platelet Count 264 10x3/uL (130-400); RBC Distribution Width 14.6 % (11.5-14.5); Red Blood Cell (RBC) Count 5.26 mill/uL (4.70-6.10)
[2024-06-16] MEDS ORDERED: hydrALAZINE 20 MG/ML VIAL ONE ×2 (10:02→11:36)
[2024-06-16 10:25] LABS: ALT (SGPT) 32 U/L (8-55); AST (SGOT) 31 U/L (5-34); Albumin 4.1 g/dL (3.5-5.0); Alkaline Phosphatase 90 U/L (40-110); Anion Gap 12 mmol/L (10-20); BUN (Urea Nitrogen) 15 mg/dL (8.4-25.7); Bilirubin, Total 0.4 mg/dL (0.2-1.2); Calc. Creatinine Clearance 0 mL/min (70-130); Calcium 9.2 mg/dL (7.8-10.44); Carbon Dioxide 25 mmol/L (22-29); Chloride 106 mmol/L (98-107); Estimated GFR 97; Globulin 3.8 g/dL (2.4-3.5); Glucose 134 mg/dL (70-105); Magnesium 1.7 mg/dL (1.6-2.6); Potassium 3.6 mmol/L (3.5-5.1); Protein, Total 7.9 g/dL (6.0-8.3); Sodium 139 mmol/L (136-145)
[2024-06-16 11:05] LABS: Troponin I 0.053 ng/mL (< 0.028)
[2024-06-16] MEDS ORDERED: Aspirin Chewable 81 MG TAB ONE (11:36)
[2024-06-16] MEDS ORDERED: Lorazepam 1 MG TAB ONE (12:56)
[2024-06-16] MEDS ORDERED: Lisinopril 5 MG TAB ONE (12:56)
[2024-06-16 13:31] LABS: Troponin I 0.047 ng/mL (< 0.028)
== END 2024-06-16 13:10 | disposition left against medical advice (07) ==
LOC: ERS 09:10
DX: I16.1 Hypertensive emergency (principal); R79.89 Other specified abnormal findings of blood chemistry; R06.2 Wheezing; F17.210 Nicotine dependence, cigarettes, uncomplicated; I10 Essential (primary) hypertension; E11.9 Type 2 diabetes mellitus without complications; Z79.84 Long term (current) use of oral hypoglycemic drugs; Z79.899 Other long term (current) drug therapy
CPT/HCPCS: 36415; 71046; 80053; 83735; 83880; 84484; 85025; 87428; 93005; 96365; 96375; 96376; J0360; J2919; J3475; J7611; J7644